=== PATIENT | male | born 1960 | race Caucasian/White ===

== ENCOUNTER 2020-05-21 16:25 | Emergency (ER) | payer BC ==
--- NOTE | 2020-05-21 16:36 | EDM.PDOC ---
ED HPI GENERAL MEDICAL PROBLEM - General Stated Complaint: BEE STING Time Seen by Provider: 05/21/20 16:28 Source of Information: Reports: Patient, RN Notes Reviewed History Limitations: Reports: No Limitations - History of Present Illness INITIAL COMMENTS - FREE TEXT/NARRATIVE: 59-year-old gentleman presents emergency department today following a what he believes is a bee sting. He has been stung by bees in the past however this 1 stung him behind his right ear he developed some scratchiness in his throat some lip swelling and he has developed an erythematous rash predominantly on the trunk and upper extremities. He denies any shortness of breath or difficulty breathing Right Posterior Head Pain Score (Numeric/FACES): 8 - Related Data Allergies Allergy/AdvReac Type Severity Reaction Status Date / Time bee venom protein (honey bee) Allergy Hives Verified 05/21/20 16:38 Home Meds: Home Meds NK [No Known Home Meds] 05/21/20 [History] Social & Family History - Tobacco Use Smoking Status *Q: Never Smoker ED ROS GENERAL - Review of Systems Review Of Systems: See Below Constitutional: Reports: No Symptoms HEENT: Reports: Throat Swelling (Itching) Respiratory: Reports: No Symptoms Cardiovascular: Reports: No Symptoms GI/Abdominal: Reports: No Symptoms Skin: Reports: Rash ED EXAM, ANIMAL BITE - Physical Exam Exam: See Below Exam Limited By: No Limitations General Appearance: Alert, WD/WN, No Apparent Distress Throat/Mouth: Normal Inspection, Normal Lips, Normal Teeth, Normal Gums, Normal Oropharynx, Normal Voice, No Airway Compromise Head: Atraumatic, Normocephalic Neck: Normal Inspection, Supple, Non-Tender, Full Range of Motion Respiratory/Chest: No Respiratory Distress, Lungs Clear, Normal Breath Sounds, No Accessory Muscle Use, Chest Non-Tender Cardiovascular: Regular Rate, Rhythm, No Murmur Course - Vital Signs Last Recorded V/S: Last Vital Signs Temp 98.0 F 05/21/20 16:42 Pulse 52 L 05/21/20 17:57 Resp 20 05/21/20 17:57 BP 145/80 H 05/21/20 17:57 Pulse Ox 100 05/21/20 17:57 - Orders/Labs/Meds Meds: Medications Discontinued Medications Generic Name Dose Route Start Last Admin Trade Name Freq PRN Reason Stop Dose Admin Epinephrine HCl 0.4 mg 05/21/20 17:02 05/21/20 18:11 Adrenalin IM 05/21/20 17:03 0.4 mg ONETIME ONE Administration Methylprednisolone Sodium Succinate 125 mg 05/21/20 17:02 05/21/20 18:11 Solu-Medrol IM 05/21/20 17:03 125 mg ONETIME ONE Administration Departure - Departure Time of Disposition: 18:17 Disposition: Home, Self-Care 01 Condition: Fair Clinical Impression: Allergic reaction to insect sting Qualifiers: Encounter type: initial encounter Injury intent: accidental or unintentional Qualified Code(s): T63.481A - Toxic effect of venom of other arthropod, accidental (unintentional), initial encounter - Discharge Information Instructions: Anaphylactic Reaction, Adult, Insect Bite, Adult, [id number] Referrals: PCP,None [Primary Care Provider] - Forms: ED Department Discharge Additional Instructions: Recommend filling your epinephrine pen prescription, please followup with your primary care provider in 3-5 days if not better, please call return to the emergency department with worsening of symptoms. Sepsis Event Note (ED) - Focused Exam Vital Signs: Vital Signs Temp Pulse Resp BP Pulse Ox 05/21/20 17:57 52 L 20 145/80 H 100 05/21/20 17:23 56 L 13 149/82 H 100 05/21/20 16:54 71 10 L 158/80 H 99 05/21/20 16:42 98.0 F 68 12 138/78 96 05/21/20 16:33 98.0 F 68 12 138/78 96 - Assessment/Plan Plan: Assessment Acuity = acute Site and laterality = allergic reaction Etiology = insect sting Manifestations = none Location of injury = Home Lab values = none Plan prescription for EpiPen provided he will follow-up with his primary care upon return home This note was dictated using [employer] recognition software please call with any questions on syntax or grammar.
[2020-05-21] MEDS ORDERED: EPINEPHrine 1 MG/ML SDV IM ONE (17:02)
[2020-05-21] MEDS ORDERED: methylPREDNISolone Sodium Succinate 125 MG/2 ML SDV IM ONE (17:02)
== END 2020-05-21 18:26 | disposition home or self-care (01) ==
LOC: JP.ED 16:25
DX: T63.481A Toxic effect of venom of other arthropod, accidental (unintentional), initial encounter (principal); Z91.030 Bee allergy status
CPT/HCPCS: 96372; 99282; J0171; J2930